=== PATIENT | female | born 1950 | race Caucasian/White ===

== ENCOUNTER → 2018-07-02 | Outpatient (CLI) | payer OTHER ==
[~2018-07-02] MED LIST: ALBU90OI61 INH; Armour Thyroid90 MG PO; Furosemide20 MG PO; NAPR500 PO; PAIN MED; VITAMIN D32000 UNI1 PO
[2018-07-04 15:09] LABS: HPV 16 Negative (Negative); HPV 18 Negative (Negative); HPV OTHER HR TYPES Negative (Negative)
== END | disposition home or self-care (01) ==
LOC: LAB 17:22 → LAB SHORT 17:22
PROVIDERS: Nurse Practitioner Women's Health
DX: Z12.4 Encounter for screening for malignant neoplasm of cervix (principal); Z91.89 Other specified personal risk factors, not elsewhere classified
CPT/HCPCS: 87624; G0123

== ENCOUNTER 2019-02-01 14:42 | Emergency (ER) | payer OTHER ==
[~2019-02-01] VITALS: Ht 152.4 cm; Wt 99.8 kg
[2019-02-01] MEDS ORDERED: ROBITUSSIN COU237 ML PO (16:50)
== END 2019-02-01 17:07 | disposition home or self-care (01) ==
LOC: ER 14:42
DX: J02.9 Acute pharyngitis, unspecified (principal); J20.9 Acute bronchitis, unspecified; Z88.0 Allergy status to penicillin; Z88.8 Allergy status to other drugs, medicaments and biological substances; Z88.5 Allergy status to narcotic agent; Z79.899 Other long term (current) drug therapy
CPT/HCPCS: 71046; 87081; 87430; 99283

== ENCOUNTER 2024-09-07 16:20 | Emergency (ER) | payer OTHER ==
[~2024-09-07] VITALS: Ht 152.4 cm; Wt 95.2 kg
[~2024-09-07 16:20] MED LIST changes: +ROBITUSSIN COU237 ML PO
[2024-09-07] MEDS ORDERED: THYR60 PO (16:44)
[2024-09-07] MEDS ORDERED: Ibuprofen 400 MG Tab PO ONE (17:00)
[2024-09-07] MEDS ORDERED: TraMADol HCl 50 MG Tab PO ONE (17:55)
[2024-09-07] MEDS ORDERED: Ultram50 MG PO ×2 (17:56)
[2024-09-07 18:19] VITALS: BP 162/87
== END 2024-09-07 19:41 | disposition home or self-care (01) ==
LOC: ER 16:20
DX: S52.572A Other intraarticular fracture of lower end of left radius, initial encounter for closed fracture (principal); S42.212A Unspecified displaced fracture of surgical neck of left humerus, initial encounter for closed fracture; S42.292A Other displaced fracture of upper end of left humerus, initial encounter for closed fracture; Z88.0 Allergy status to penicillin; Z88.8 Allergy status to other drugs, medicaments and biological substances; Z88.6 Allergy status to analgesic agent; Z79.890 Hormone replacement therapy; W01.0XXA Fall on same level from slipping, tripping and stumbling without subsequent striking against object, initial encounter
CPT/HCPCS: 29105; 73060; 73110; 99283-25; A9270

== ENCOUNTER 2024-09-15 12:23 | Day surgery (SDC) | payer OTHER ==
[~2024-09-15] VITALS: Ht 149.9 cm; Wt 97.0 kg
[2024-09-15] VITALS (13 sets, daily range): BP systolic 160–186; BP diastolic 80–99
[~2024-09-15 12:23] MED LIST changes: +THYR60 PO; +Ultram50 MG PO
[2024-09-15] MEDS ORDERED: Dexamethasone Sod Phos 10 MG/ML 1ML VIAL ONE ×3 (12:44→14:26)
[2024-09-15] MEDS ORDERED: Bupivacaine 0.5% HCl 5 MG/ML 30MLVIAL ONE ×2 (12:45→15:47)
[2024-09-15] MEDS ORDERED: FentaNYL Citrate 50 MCG/ML 2 ML Injection ONE (12:47)
[2024-09-15] MEDS ORDERED: Midazolam HCl 1MG / ML 2ML Vial ONE (12:48)
[2024-09-15] MEDS ORDERED: CeFAZolin Sodium 2,000 MG in NS 100 ML IV SCH ×2 (12:50→23:00)
[2024-09-15] MEDS ORDERED: Lactated Ringer's 1,000 ML IV SCH (12:50)
[2024-09-15] MEDS ORDERED: CeFAZolin Sodium 2,000 MG VIAL ONE (13:15)
[2024-09-15 13:24] LABS: BASOPHILS ABSOLUTE AUTO 0.04 K/mm3 (0.00-0.23); BASOPHILS PERCENT AUTO 1 % (0-2); EOSINOPHILS ABSOLUTE AUTO 0.15 K/mm3 (0.00-0.68); EOSINOPHILS PERCENT AUTO 2 % (0-6); Hematocrit 36.1 % (33.0-51.0); Hemoglobin 11.9 g/dL (11.5-16.0); IMMATURE GRAN ABSOLUTE AUTO 0.03 K/mm3 (0.00-0.10); IMMATURE GRAN PERCENT AUTO 0 % (0-1); LYMPHOCYTES ABSOLUTE AUTO 1.62 K/mm3 (0.84-5.20); LYMPHOCYTES PERCENT AUTO 20 % (21-46); MONOCYTES ABSOLUTE AUTO 0.72 K/mm3 (0.16-1.47); MONOCYTES PERCENT AUTO 9 % (4-13); Mean Corpuscular HGB 31.3 pg (26.0-34.0); Mean Corpuscular Volume 95 fL (80-100); Mean Platelet Volume 10.1 fL (9.1-12.4); NEUTROPHILS ABSOLUTE AUTO 5.59 K/mm3 (1.96-9.15); NEUTROPHILS PERCENT AUTO 69 % (41-73); Platelet Count 287 K/mm3 (150-400); RDW Coefficient Variation 13.7 % (11.7-14.2); RDW Standard Deviation 47.4 fL (35.1-46.3); White Blood Cell Count 8.15 K/mm3 (4.00-11.30)
--- NOTE | 2024-09-15 13:38 | NUR ---
History, Chart, Medications and Allergies reviewed before start of procedure. Pre-Op teaching done. Pt verbalizes understanding. Patient confirms NPO status and agrees with scheduled surgery. PT BELONGINGS PLACED UNDER GURNEY. GLASSES GIVEN TO DAUGHTER AT BS.
[2024-09-15] MEDS ORDERED: EpiNEPhrine 1 MG/1 ML 1ML Vial ONE (13:44)
[2024-09-15] MEDS ORDERED: propofoL 20 ML IV ONE ×2 (13:45→14:24)
[2024-09-15 13:50] LABS: Bun/Creatinine Ratio 17.7 (12.0-20.0); Calcium, Blood 9.3 mg/dL (8.5-10.1); Creatinine, Blood 0.79 mg/dL (0.40-1.00); Potassium, Blood 4.2 mmol/L (3.5-5.5)
[2024-09-15] MEDS ORDERED: Ondansetron HCl 2 MG / ML 2ML Vial ONE (14:26)
[2024-09-15] MEDS ORDERED: Rocuronium Bromide 10 MG/ML 5ML Injection IV ONE (14:26)
--- NOTE | 2024-09-15 14:30 | NUR ---
BLOCK COMPLETED AT BS BY DR. WALLS. PER DR WALLS THIS RN PLACED PT ON 2L NC, REPOSITIONED PT UP IN BED, AND PLACED ON PULSE OX MONITOR. TIME OUT COMPLETED AT BS BEFORE PROCEDURE.
[2024-09-15] MEDS ORDERED: Tranexamic Acid 100 ML IV SCH (14:46)
[2024-09-15] MEDS ORDERED: HYDROmorphone HCl/Pf 1MG SYR ONE (15:11)
[2024-09-15] MEDS ORDERED: SuccINYLCHOLINE Chloride 100 MG/5 ML 5MLSYR ONE (15:46)
--- NOTE | 2024-09-15 15:54 | NUR ---
09/15/24 1554 Annemarie,Jenny ABRASION ON PATIENT'S LEFT ELBOW NOTED PRIOR TO ENTRY TO OR.
[2024-09-15] MEDS ORDERED: ePHEDrine Sulfate 50 MG/ML 1ML Injection ONE (16:08)
[2024-09-15] MEDS ORDERED: Glycopyrrolate 0.2 MG/ML 5ML VIAL ONE (16:10)
[2024-09-15] MEDS ORDERED: Sugammadex Sodium 200 MG/2ML SDV (100 MG/ML) ONE (16:37)
[2024-09-15] MEDS ORDERED: Bisacodyl 10 MG Supp PR PRN (18:05)
[2024-09-15] MEDS ORDERED: OxyCODONE HCL 5 MG TAB PO PRN (18:10)
[2024-09-15] MEDS ORDERED: Magnesium Hydroxide Conc 10 ML UDC PO PRN (18:10)
[2024-09-15] MEDS ORDERED: FLU VACC TS2024-25(6MOS UP)/PF 45 MCG/0.5 ML SYRINGE IM ONE (18:10)
--- NOTE | 2024-09-15 18:30 | NUR ---
PT ARRIVED TO THE ROOM FROM PACU AT APPROXMATELY 1805. PT ALERT/ORIENTED UPON ARRIVAL. PT IS ABLE TO WIGGLE HER FINGERS ON HER L HAND, CAP REFIL WNL, FINGERS WARM. PT HAS BRUISING TO THE JEFF AND L SIDE, SWELLING PRESENT TO L SHOULDER AND ARM. PT HAS A RASH AND FOUL ODOR UNDER THE LEFT SIDE OF HER PANNUS, PT ALSO REPORTS ITCHING TO THE GROIN, SOME REDNESS, PT REPORTS ONGOING FOR SEVERAL WEEKS. PT HAS ELEVATED BLOOD PRESSURE BUT REPORTS FEELING ANXIOUS. PT ASSISTED TO THE BATHROOM THEN ASSISTED TO SIT IN THE RECLINER. PT PROVIDED WITH CALL LIGHT AND EDUCATED TO USE.
--- NOTE | 2024-09-15 19:00 | NUR ---
SHIFT SUMMARY PT IS POD#0. BEDSIDE REPORT GIVEN TO NOC RN. PT ASKED IF HER SERVICE DOG COULD STAY WITH HER IN THE HOSPITAL. PT EDUCATED THAT THE SERVICE DOG CAN BE IN THE HOSPITAL BUT HER OR A FAMILY MEMBER NEEDS TO BE ABLE TO PROVIDE FULL CARE TO THE DOG, STAFF CANNOT PROVIDE CARE. PT EDUCATED THAT IF THE DOG VOIDS OR DEFECATES ON THE FLOOR, OR IS AGGRESSIVE TOWARD STAFF IT WILL BE ASKED TO LEAVE. PT VERBALIZED UNDERSTANDING.
[2024-09-15] MEDS ORDERED: Docusate Sodium 100 MG Cap PO SCH (21:00)
[2024-09-15] MEDS ORDERED: Miconazole Nitrate 2% 85 GM PWD TOP SCH (21:05)
[2024-09-16] MEDS ORDERED: Ketorolac Tromethamine 15mg Vial IV SCH
[2024-09-16] MEDS ORDERED: Acetaminophen 500 MG Tab PO SCH
[2024-09-16 04:08] VITALS: BP 158/69
--- NOTE | 2024-09-16 04:35 | NUR ---
SHIFT SUMMARY POD1 L SHOULDER ORIF. SENSATION AND CIRCULATION REMAINS IN PLACE, DRESSINGS ARE C/D/I. SLING REMAINS IN PLACE. VSS. PT SLEPT MINIMALLY T/O THE NIGHT. PT HAD A DIFFICULT NIGHT D/T EMOTIONAL DISTRESS OVER NOT HAVING HER FAMILY IN THE HOSPITAL WITH HER. PT HAS BEEN ABLE TO AMBULATE TO THE BATHROOM W/ SBA. TOLLERATING PO INTAKE W/O N/V. PT REFUSING ALL PAIN MEDICATION BUT TORADOL, WHICH SHE DOES NOT LIKE EITHER. NO ACUTE MEDICAL EVENTS T/O THE NIGHT. PLAN TO D/C TODAY.
--- NOTE | 2024-09-16 05:52 | NUR ---
PATIENT COMMUNICATION THIS AM THIS RN WAS WALKING DOWN THE DAMON AND STARTED SPEAKING TO THE DECISION UNIT RN WHO WAS CARING FOR THIS PT. THE DECISION UNIT RN EXPLAINED THAT THE PATIENT WOULD NOT ALLOW HER TO ASSIST WITH CARE. THE PATIENT FIRST C/O THE TOWEL UNDER HER ARM BEING TOO HARD, EVEN THOUGH SHE HAD PREVIOUSLY ASKED FOR IT AND REPORTED THAT IT WAS OKAY. THE PATIENT THEN ASKED THE DECISION UNIT RN FOR THE ICE PACK THAT WAS ON HER BEDSIDE TABLE, WHICH WAS MELTED. THE DECISION UNIT RN INFORMED THE PATIENT OF THIS AND SHE EXCLAIMED THAT SHE "DIDNT CARE, AND I WANT IT ANYWAYS". THE ICE PACK THEN PROMPTLY LEAKED ON THE PATIENT, WHICH THEN ANGERED HER. THE PATIENT THEN WENT TO THE BATHROOM W/ ASSISTANCE FROM THE DECISION UNIT RN. SHE VERBALIZED UPSET OVER HER CARDIGAN BEING WET, THE DECISION UNIT RN OFFERED TO HELP TAKE IT OFF AND THE PATIENT REFUSED BECAUSE WE DO NOT HAVE ACCESS TO A CLOTHES DRYER. THE PATIENT THEN THREW HER CARDIAGAN ON THE FLOOR AND ASKED FOR A TOWEL TO STAND ON TO DRY THE CARDIGAN. AT THIS POINT IN TIME I, THE PRIMARY RN, ASSUMED TOTAL CARE. I WENT IN THE ROOM THE PATIENT WAS STANDING IN THE BATHROOM, WEARING HER WET CARDIGAN. SHE WAS EXPRESSING TO ME HER GENERAL UPSET WITH THE DECISION UNIT RN AND HOW SHE WAS "TOTALLY INCOMPETENT". I INFORMED THE PATIENT THAT SHE HAD BEEN ACTING INAPPROPRIATELY AND THAT IT WOULD NOT BE TOLLERATED. I INFORMED HER THAT SHE WAS NOT ALLOWED TO SPEAK TO THE DECISION UNIT RN IN SUCH A DEMEANING MANNER. THE PATIENT THEN TOLD ME THAT SHE HAS HAD SUCH AN AWFUL NIGHT AT THE HOSPITAL, THAT HER NEEDS HAVE NOT BEEN MET, AND THAT SHE HAS NOT BEEN CARED FOR PROPERLY. I ASKED THE PATIENT TO OFFER EXAMPLES OF THIS, AND SHE WAS UNABLE TO OFFER ANY EXAMPLES. I ASSISTED THE PATIENT TO SIT IN HER RECLINER AND GET INTO HER RECLINER AND INTO A COMFORTABLE POSITION. THE PATIENT THEN EXPRESSED THAT SHE WANTED TO LEAVE, I OFFERED THE PATIENT AMA FORMS, TO REMOVE HER IV AND CALL HER A RIDE IMMEDIATELY. THE PATIENT REFUSED AND STATED THAT SHE WANTS TO GO TO SNF, NOT HOME. THEREFORE SHE WILL NOT LEAVE AMA. THIS RN THEN MADE SURE THAT THE PATIENT HAS NO OTHER ACUTE CONERNS OR NEEDS, PLACED HER CALL LIGHT IN REACH, AND INFORMED THE PATIENT THAT I WOULD RETURN WITH THE ONCOMING NURSE.
[2024-09-16 07:26] VITALS: BP 154/74
--- NOTE | 2024-09-16 13:48 | NUR ---
THIS NURSE WENT THROUGH DISCHARGE INFORMATION AND EDUCATION WITH PATIENT, SHE REFUSED TO SIGN SIGNATURE PAGE. RESISTING DISCHARGE AT THIS TIME, WORRIED ABOUT RETURNING HOME. CASE MANAGEMENT IN ROOM WITH PATIENT. PLANS TO DISCHARGE TO [place] WHERE HER MOTHER IS LIVING. PT EATING/DRINKING/VOIDING WITH NO DIFFICULTY, MOVING INDEPENDENTLY IN THE ROOM. PAIN MANAGED. SPLINT IN PLACE. INCISION SITE COVERED WITH AQUACEL, C/D/I. HAND COVERED WITH GAUZE AND ABY BANDAGE C/D/I. ADDITIONAL DRESSING/BANDAGES PROVIDED FOR PATIENT TO TAKE HOME. CAP REFILL <3 SEC, WARM FINGERS. PPP.
[2024-09-16 14:45] VITALS: BP 152/76
--- NOTE | 2024-09-16 14:51 | NUR ---
PT WAS ABLE TO INDEPENDENTLY DRESS HERSELF IN THE ROOM WITHOUT ISSUE. WHEELED OUT VIA WHEELCHAIR TO A [facility] WHERE SHE WILL BE DRIVEN TO HER MOTHERS RESIDENCE. NO ACUTE EVENTS NOTED SINCE PRIOR NOTE. VSS UPON DISCHARGE, DRESSING C/D/I, PAIN MANAGED.
== END 2024-09-16 14:50 | disposition home or self-care (01) ==
LOC: ORSCMMR 12:23 → ORD 15:35 → SURS 17:57 → ORSCMMR 09-16 14:50
PROVIDERS: Orthopaedic Surgery
PROC: 0PSD04Z Reposition Left Humeral Head with Internal Fixation Device, Open Approach (ICD-10-PCS; principal; 2024-09-15 15:35)
PROC: 0PSJ04Z Reposition Left Radius with Internal Fixation Device, Open Approach (ICD-10-PCS; principal; 2024-09-15 15:35)
DX: S52.572A Other intraarticular fracture of lower end of left radius, initial encounter for closed fracture (principal); S42.202A Unspecified fracture of upper end of left humerus, initial encounter for closed fracture; W10.2XXA Fall (on)(from) incline, initial encounter; E11.9 Type 2 diabetes mellitus without complications; E03.9 Hypothyroidism, unspecified; E78.5 Hyperlipidemia, unspecified; J45.909 Unspecified asthma, uncomplicated; F90.9 Attention-deficit hyperactivity disorder, unspecified type; F32.A Depression, unspecified; F41.9 Anxiety disorder, unspecified; Z79.899 Other long term (current) drug therapy; E66.01 Morbid (severe) obesity due to excess calories; Z68.41 Body mass index [BMI] 40.0-44.9, adult
CPT/HCPCS: 80048; 85025; 93005; 93010; 94762; 97110; 97162; 97530; A9270; C1713; J0171; J0330; J0690; J1100; J1170; J1171; J1885; J2250; J2405; J2704; J3010; J7120

== ENCOUNTER 2025-05-27 07:30 | Day surgery (SDC) | payer OTHER ==
[2025-05-27] VITALS (9 sets, daily range): BP systolic 168–191; BP diastolic 84–101
[~2025-05-27] VITALS: Ht 152.4 cm; Wt 91.5 kg
[~2025-05-27 07:30] MED LIST changes: -VITAMIN D32000 UNI1 PO; +Vitamin D1000 UNI1 PO
[2025-05-27] MEDS ORDERED: CeFAZolin Sodium 2,000 MG in NS 100 ML IV SCH (07:40)
--- NOTE | 2025-05-27 08:15 | NUR ---
INTO SDS VIA WHEELCHAIR. PT REPORTS FEELING ANXIOUS AND STATES THAT SHE DIDN'T SLEEP AT ALL LAST NIGHT. HISTORY AND ALLERGIES REVIEWED AND UPDATED. LUNGS CLEAR. SATS 93% ON RA. PT DENIES SOB. PT HAS FRANCISCA, BUT DOES NOT TOLERATE CPAP. NPO STATUS CONFIRMED. CHLORHEXIDINE SHOWER X 1 AND CHLORHEXIDINE WIPE X 3. PT CAREPROVIDER "KENNETH" IS RIDE HOME TODAY. PT PHONE AND GLASSES TO RECOVERY ROOM. OTHER BELONGINGS IN BAG BELOW LAKIA.
[2025-05-27] MEDS ORDERED: FentaNYL Citrate 50 MCG/ML 2 ML Injection ONE ×2 (09:26→09:35)
[2025-05-27] MEDS ORDERED: Rocuronium Bromide 10 MG/ML 5ML Injection IV ONE ×2 (09:34→09:46)
[2025-05-27] MEDS ORDERED: Dexamethasone Sod Phos 10 MG/ML 1ML VIAL ONE (09:34)
[2025-05-27] MEDS ORDERED: Ketorolac Tromethamine 30mg Vial ONE ×2 (09:34→10:55)
[2025-05-27] MEDS ORDERED: Ondansetron HCl 2 MG / ML 2ML Vial ONE (09:34)
[2025-05-27] MEDS ORDERED: Phenylephrine HCl 100 MCG/ML-NS 10MLSYR (1MG/10ML) ONE (09:46)
[2025-05-27] MEDS ORDERED: Bupivacaine 0.5% HCl 5 MG/ML 30MLVIAL ONE (09:53)
[2025-05-27] MEDS ORDERED: Phenylephrine HCl 10mg/ml 1 ml Vial ONE (10:21)
[2025-05-27] MEDS ORDERED: Morphine Sulfate 4 MG/1 ML Injection IV PRN (10:55)
[2025-05-27] MEDS ORDERED: Sugammadex Sodium 200 MG/2ML SDV (100 MG/ML) ONE (10:55)
[2025-05-27] MEDS ORDERED: Albuterol 2.5 MG/3 ML VIAL INH PRN (11:00)
[2025-05-27] MEDS ORDERED: HYDROmorphone HCl/Pf 1MG SYR IV PRN (11:00)
[2025-05-27] MEDS ORDERED: Ondansetron HCl 2 MG / ML 2ML Vial IV PRN (11:00)
[2025-05-27] MEDS ORDERED: FentaNYL Citrate 50 MCG/ML 2 ML Injection IV PRN ×2 (11:00)
[2025-05-27] MEDS ORDERED: Metoclopramide HCl 5MG / ML 2ML Vial IV PRN (11:00)
[2025-05-27] MEDS ORDERED: HYDROcodone 5-APAP 325 TAB PO PRN (11:30)
--- NOTE | 2025-05-27 11:53 | NUR ---
REPORT RECEIVED FROM AL YUSUF, VSS. PT ON RA. PT A&OX4. PT ABLE TO REPOSITION SELF IN BED. PT REQUESTING PO FLUIDS AND TOLERATING THEM WELL. PT DENIES PAIN, NAUSEA OR OTHER DISCOMFORTS. PT HAS GAUZE/TEGADERM DRSG TO UMBILICAL THAT IS CDI.
--- NOTE | 2025-05-27 12:05 | NUR ---
REPORT GIVEN TO JOANNA YUSUF TO ASSUME CARE OF PT AT THIS TIME.
--- NOTE | 2025-05-27 12:56 | NUR ---
ASSUMED CARE FROM Jez CORONA RN Patient up to Ambulate with assist. Gait steady. Donated wheelchair given to patient from hospital for home use. Discharge instructions reviewed with patient. Patient verbalizes understanding. Copy given to patient to take home. Patient States Post-Procedure ride home has been arranged. Discharged via wheelchair to private car for ride home.
== END 2025-05-27 12:36 | disposition home or self-care (01) ==
LOC: ORSCMMR 07:30 → ORD 09:00 → ORSCMMR 12:36
PROVIDERS: Surgery
PROC: 0WUF0JZ Supplement Abdominal Wall with Synthetic Substitute, Open Approach (ICD-10-PCS; principal; 2025-05-27 09:00)
DX: K42.0 Umbilical hernia with obstruction, without gangrene (principal); I10 Essential (primary) hypertension; E11.9 Type 2 diabetes mellitus without complications; K21.9 Gastro-esophageal reflux disease without esophagitis; E03.9 Hypothyroidism, unspecified; E78.5 Hyperlipidemia, unspecified; F41.8 Other specified anxiety disorders; Z79.899 Other long term (current) drug therapy; E66.9 Obesity, unspecified; Z68.39 Body mass index [BMI] 39.0-39.9, adult
CPT/HCPCS: C1781; J0690; J1100; J1885; J2371; J2405; J2704; J3010; J7120